=== PATIENT | female | born 1985 | race Two or more races ===

== ENCOUNTER 2023-12-14 14:44 | Emergency (ER) | payer SELFPAY ==
[~2023-12-14] VITALS: Ht 170.2 cm; Wt 77.0 kg
[2023-12-14 15:25] VITALS: BP 117/78; RESP 18; TEMP 98; O2SAT 99
[2023-12-14 15:40] VITALS: PULSE 92
[2023-12-14 16:12] LABS: Basophils # (auto) 0 10 ^3/uL (0-0.2); Basophils % (auto) 0.2 % (0.0-2.0); Eosinophils # (auto) 0.1 10 ^3/uL (0-0.8); Eosinophils % (auto) 0.6 % (0.0-7.0); Hematocrit 43.6 % (36.0-46.0); Hemoglobin 14.5 g/dL (12.2-16.2); Lymphocytes # (auto) 3.6 10 ^3/uL (0.4-5.4); Lymphocytes % (auto) 18.7 % (10.0-50.0); Mean Corpuscular Hemoglobin 30.3 pg (28.0-32.0); Mean Corpuscular Hgb Conc. 33.4 g/dL (32.0-36.0); Mean Corpuscular Volume 90.9 fL (80.0-100.0); Monocytes # (auto) 1.1 10 ^3/uL (0-1.3); Monocytes % (auto) 5.9 % (0.0-12.0); Neutrophils # (auto) 14.4 10 ^3/uL (1.6-8.6); Neutrophils % (auto) 74.6 % (37.0-80.0); Red Blood Cells 4.79 10^6/uL (4.0-5.20); Red Cell Distribution Width 13.5 % (11.8-14.3); White Blood Cell 19.4 10^3/uL (4.4-10.8)
[2023-12-14 16:22] LABS: Chloride 102 mmol/L (98-107); Potassium 4.4 mmol/L (3.5-5.1); Sodium 137 mmol/L (136-145)
[2023-12-14 16:23] LABS: Anion Gap 11 (5-15); Carbon Dioxide 24 mmol/L (20-30)
[2023-12-14 16:24] LABS: Calcium 10.9 mg/dL (8.7-10.4)
[2023-12-14 16:28] LABS: BUN/Creatinine Ratio 13.5 (10.0-20.0); Blood Urea Nitrogen 10 mg/dL (9-23); Glucose 151 mg/dL (74-106)
[2023-12-14] MEDS ORDERED: HYDR25CA PO (17:13)
== END 2023-12-14 17:22 | disposition home or self-care (01) ==
LOC: ER 14:44 → EDBD 14:44 → ER 17:21
DX: F41.8 Other specified anxiety disorders (principal); I10 Essential (primary) hypertension; E78.5 Hyperlipidemia, unspecified; Z79.899 Other long term (current) drug therapy; Z88.0 Allergy status to penicillin; Z88.1 Allergy status to other antibiotic agents
CPT/HCPCS: 36415; 80048; 84443; 84484; 85025; 93005